=== PATIENT | female | born 1990 | race Caucasian/White ===

== ENCOUNTER 2017-02-18 21:40 | Emergency (ER) | payer MEDICAID | END 2017-02-18 21:50 | disposition left against medical advice (07) | LOC: D.ER 21:40 | DX: Z02.9 Encounter for administrative examinations, unspecified (principal) ==

== ENCOUNTER 2017-02-22 16:10 | Emergency (ER) | payer MEDICAID ==
[2017-02-22 17:12] LABS: BASOPHILS 0.2 % (0-2); HEMATOCRIT 39.5 % (36.0-48.0); HEMOGLOBIN 13.5 g/dL (12-16); IMMATURE GRANULOCYTES 0.1 % (0-5); LYMPHOCYTES 30.2 % (15-50); MCH 32.5 pg (26.0-34.0); MCHC 34.2 g/dL (31.0-37.0); MONOCYTES 7.2 % (2-11); NEUTROPHILS 61.3 % (40-80); PLATELET COUNT 325 10x3/uL (130-400); RBC 4.16 10x6/uL (4.00-5.40); RDW 12.6 % (11.5-14.5)
[2017-02-22 17:20] LABS: HCG SERUM NEGATIVE (NEGATIVE)
[2017-02-22 17:39] LABS: APPEARANCE HAZY (CLEAR); BILIRUBIN NEGATIVE (NEGATIVE); COLOR PINK (YELLOW); GLUCOSE NEGATIVE (NEGATIVE); KETONE NEGATIVE (NEGATIVE); NITRITE NEGATIVE (NEGATIVE); PROTEIN 1+ mg/dL (NEGATIVE); UROBILINOGEN NORMAL (NORMAL)
[2017-02-22 17:41] LABS: BACTERIA MODERATE /hpf (NONE SEEN); EPITHELIAL CELLS 0-5 /hpf (0-5); RED CELLS - URINE >50 /hpf (0-5); WHITE CELLS - URINE 0-5 /hpf (0-5)
== END 2017-02-22 18:30 | disposition left against medical advice (07) ==
LOC: D.ER 16:10
PROVIDERS: Emergency Medicine
DX: R10.30 Lower abdominal pain, unspecified (principal)